=== PATIENT | female | born 1960 | race Caucasian/White ===

== ENCOUNTER 2017-03-15 15:23 | Emergency (ER) | payer BC ==
[2017-03-15 15:45] VITALS: BP 132/74
--- NOTE | 2017-03-15 16:00 | UC ---
Back Pain HPI - HPI Summary HPI Summary: Slipped and feel in the hallway at [employer] on Saturday has a bruise on her buttock, chiropractor ordered back x-rays and suggested she get a muscle relaxer - History of Current Complaint Chief Complaint: UCBackPain Stated Complaint: BACK PAIN Time Seen by Provider: 03/15/17 15:55 Hx Obtained From: Patient Hx Last Menstrual Period: menopausal ?: No Onset/Duration: Sudden Onset, Lasting Days - 4days ago, Still Present Timing: Constant Severity Initially: Moderate Severity Currently: Moderate Pain Intensity: 7 Pain Scale Used: 0-10 Numeric Back Pain: Is Discrete @ - lumbar/sacral spine Character: Aching, Spasmodic Aggravating: Movement, Lifting Alleviating: Rest, OTC Meds - Naproxen Associated Signs And Symptoms: Positive: Bruising - Allergies/Home Medications Allergies/Adverse Reactions: Allergies Allergy/AdvReac Type Severity Reaction Status Date / Time No Known Allergies Allergy Verified 02/10/13 08:34 PMH/Surg Hx/FS Hx/Imm Hx Previously Healthy: Yes Endocrine History Of: Denies: Diabetes, Thyroid Disease Cardiovascular History Of: Denies: Cardiac Disorders, Hypertension Respiratory History Of: Denies: COPD, Asthma GI/ History Of: Denies: Ulcer Cancer History Of: Denies: Breast Cancer - Surgical History Surgical History: None Surgery Procedure, Year, and Place: HYSTERECTOMY,BIOPSY - Family History Known Family History: Positive: None Family History: no reported cardiovascular issues in family lineage - Social History Occupation: Retired - and volunteers at the school Lives: With Family Alcohol Use: None Substance Use Type: None Smoking Status (MU): Never Smoked Tobacco Review of Systems Constitutional: Negative Skin: Negative Eyes: Negative ENT: Negative Respiratory: Negative Cardiovascular: Negative Gastrointestinal: Negative Genitourinary: Negative Motor: Negative Neurovascular: Negative Musculoskeletal: Arthralgia - lumbar sacral pain Neurological: Negative Psychological: Negative All Other Systems Reviewed And Are Negative: Yes Physical Exam Triage Information Reviewed: Yes Appearance: Well-Appearing, Well-Nourished, Pain Distress Vital Signs: Initial Vital Signs Pulse 63 03/15/17 15:38 Resp 16 03/15/17 15:38 BP 132/74 03/15/17 15:38 Pulse Ox 97 03/15/17 15:38 Vital Signs Reviewed: Yes Eye Exam: Normal Eyes: Positive: Conjunctiva Clear ENT Exam: Normal ENT: Positive: Normal ENT inspection, Hearing grossly normal, Pharynx normal, TMs normal. Negative: Nasal congestion, Nasal drainage, Trismus, Muffled/ hoarse voice Dental Exam: Normal Neck exam: Normal Neck: Positive: Supple, Nontender, No Lymphadenopathy Respiratory Exam: Normal Respiratory: Positive: Chest non-tender, Lungs clear, Normal breath sounds, No respiratory distress, No accessory muscle use Cardiovascular Exam: Normal Cardiovascular: Positive: RRR, No Murmur, Pulses Normal, Brisk Capillary Refill Abdominal Exam: Normal Abdomen Description: Positive: Nontender, No Organomegaly, Soft Bowel Sounds: Positive: Present Musculoskeletal Exam: Normal Musculoskeletal: Positive: Strength Intact, No Edema, ROM Limited @ - limited flex, extend and lateral movements Neurological Exam: Normal Neurological: Positive: Alert, Muscle Tone Normal Psychological Exam: Normal Skin Exam: Normal Diagnostics - Radiology No standard instances Xray Interpretation: Positive (See Comments) - artherictic changes Radiology Interpretation Completed By: Radiologist Back Pain Course/Dx - Course Course Of Treatment: Naproxen, flexeril, complimentary treatment as pt sees necessary follow with pcp - Differential Dx/Diagnosis Differential Diagnosis/HQI/PQRI: Arthritis, Strain, Sprain Provider Diagnoses: Lumbar sacral muscle strain, Discharge - Discharge Plan Condition: Stable Disposition: HOME Prescriptions: Cyclobenzaprine TAB* [Flexeril 10 MG TAB*] 10 mg PO TID PRN #24 tab PRN Reason: muscle spasm, pain Naproxen Sodium [Naproxen Sodium 500 MG TAB] 500 mg PO BID #40 tab Patient Education Materials: Low Back Strain (ED), Acute Low Back Pain (ED), Core Strengthening Exercises (GEN), Lower Back Exercises (ED) Referrals: Nitin Mckeon MD [Primary Care Provider] - 5 Days
== END 2017-03-15 16:21 | disposition home or self-care (01) ==
LOC: UCEAST 15:23
DX: S39.012A Strain of muscle, fascia and tendon of lower back, initial encounter (principal); W01.0XXA Fall on same level from slipping, tripping and stumbling without subsequent striking against object, initial encounter
CPT/HCPCS: 99212; G0463

== ENCOUNTER 2017-10-27 17:57 | Emergency (ER) | payer BC ==
[2017-10-27 18:20] VITALS: BP 131/66
[2017-10-27] MEDS ORDERED: Naproxen TAB* 250 MG PO ONE (18:27)
[2017-10-27] MEDS ORDERED: HYDROcodone/ACETAMIN 5-325 MG* 1 TAB PO ONE ×2 (18:27→19:43)
--- NOTE | 2017-10-27 18:32 | UC ---
Lower Extremity/Ankle HPI - HPI Summary HPI Summary: While stepping down from ladder at home [place] L ankle twisted underneath her and twisted around. Now has swelling, bruising, and pain, unable to bear weight. Had prior tibial plateau fx in L knee. Denies other injuries to wrists or head/neck. - History of Current Complaint Chief Complaint: UCLowerExtremity Stated Complaint: L ANKLE PAIN Time Seen by Provider: 10/27/17 18:19 Hx Obtained From: Patient Hx Last Menstrual Period: post ?: No Onset/Duration: Sudden Onset Severity Initially: Severe Severity Currently: Moderate Aggravating Factor(s): Other - movement Alleviating Factor(s): Rest, Elevation Able to Bear Weight: No - Allergies/Home Medications Allergies/Adverse Reactions: Allergies Allergy/AdvReac Type Severity Reaction Status Date / Time No Known Allergies Allergy Verified 10/27/17 18:20 PMH/Surg Hx/FS Hx/Imm Hx Previously Healthy: Yes - Surgical History Surgical History: None Surgery Procedure, Year, and Place: HYSTERECTOMY,BIOPSY - Family History Known Family History: Positive: None Family History: no reported cardiovascular issues in family lineage - Social History Lives: Alone Alcohol Use: None Substance Use Type: None Smoking Status (MU): Never Smoked Tobacco Review of Systems Constitutional: Negative Skin: Negative Eyes: Negative ENT: Negative Respiratory: Negative Cardiovascular: Negative Gastrointestinal: Negative Genitourinary: Negative Motor: Negative Neurovascular: Negative Musculoskeletal: Arthralgia, Decreased ROM, Edema Neurological: Negative Psychological: Negative Is Patient Immunocompromised?: No All Other Systems Reviewed And Are Negative: Yes Physical Exam Triage Information Reviewed: Yes Appearance: Well-Nourished, Pain Distress - mod Vital Signs: Initial Vital Signs Temp 97.8 F 10/27/17 18:16 Pulse 71 10/27/17 18:16 Resp 17 10/27/17 18:16 BP 131/66 10/27/17 18:16 Pulse Ox 96 10/27/17 18:16 Vital Signs Reviewed: Yes Eye Exam: Normal Eyes: Positive: Conjunctiva Clear ENT Exam: Normal ENT: Positive: Normal ENT inspection, Hearing grossly normal, Pharynx normal, TMs normal Dental Exam: Normal Neck exam: Normal Neck: Positive: Supple, Nontender, No Lymphadenopathy Respiratory Exam: Normal Respiratory: Positive: Chest non-tender, Lungs clear, Normal breath sounds, No respiratory distress, No accessory muscle use Cardiovascular Exam: Normal Cardiovascular: Positive: RRR, No Murmur Musculoskeletal Exam: Other - L medial ankle tenderness, diffuse swelling and ecchymosis, no tenderness at base of L 5th metatarsal. Musculoskeletal: Positive: ROM Limited @ - L ankle Neurological Exam: Normal Neurological: Positive: Alert Psychological Exam: Normal Skin Exam: Normal Procedures - Splinting Location: L lower leg Hand-Made Type: orthoglass Splint: posterior walking Pre-Proc Neuro Vasc Exam: normal Post-Proc Neuro Vasc Exam: normal Lower Extremity Course/Dx - Differential Dx/Diagnosis Provider Diagnoses: L ankle bimalleolar fracture closed, moderate displacement Discharge - Discharge Plan Condition: Stable Disposition: HOME Prescriptions: HYDROcodone/ACETAMIN 5-325 MG* [Noble 5-325 TAB*] 1 - 2 tab PO Q6H PRN #12 tab MDD 6 PRN Reason: Pain Patient Education Materials: Ankle Fracture (ED) Referrals: Adolfo Roque MD [Medical Doctor] - 3 Days Additional Instructions: Keep the injured leg elevated as much as possible; you can continue naproxen twice daily until you see the orthopedist, and use the hydrocodone as needed. If the orthopedist office cannot see you within 3 days, please call us for further assistance.
--- NOTE | 2017-10-27 18:59 | RAD ---
INDICATION: Left ankle injury. TECHNIQUE: 3 views of the left ankle were obtained. FINDINGS: There is diffuse soft tissue swelling. There is a transverse distracted intra-articular fracture of the medial malleolus. There is an oblique intra-articular fracture of the lateral malleolus. The distal fragment is displaced one cortical diameter posterior relative to the proximal fragment. There is diffuse widening of the ankle mortise. IMPRESSION: BIMALLEOLAR FRACTURE WITH DIFFUSE WIDENING OF THE ANKLE MORTISE.
== END 2017-10-27 19:50 | disposition home or self-care (01) ==
LOC: UCEAST 17:57
DX: S82.842A Displaced bimalleolar fracture of left lower leg, initial encounter for closed fracture (principal); X50.1XXA Overexertion from prolonged static or awkward postures, initial encounter; Y93.89 Activity, other specified; Y92.9 Unspecified place or not applicable
CPT/HCPCS: 99213; A9270-GY; G0463

== ENCOUNTER → 2017-11-06 13:49 | Day surgery (SDC) | payer BC ==
[~2017-11-06 13:49] MED LIST: Buffered Lidocaine 0.9% SYRIN* 5 ML/SYR SYRINGE INTRADERM ONE; Buffered Lidocaine 0.9% SYRIN* 5 ML/SYR SYRINGE ONE; Bupivacaine 0.25% SDV* 30 ML ONE; Dexamethasone IV* 4 MG/ML 1 ML (4 MG) ONE; DiMENhydriNATE IV* 50 MG/ML VIAL IV PUSH PRN; HYDROcodone/ACETAMIN 5-325 MG* 1 TAB ONE; HYDROcodone/ACETAMIN 5-325 MG* 1 TAB PO PRN; HYDROmorphone INJ* 1 MG/ML CARPUJECT SYRINGE IV PRN; Ketorolac INJ* 30 MG/ML 1 ML VIAL ONE; Midazolam* 1 MG/ML 2 ML VIAL (2 MG) ONE; Naloxone* 0.4 MG/ML 1 ML VIAL IV PRN; Ondansetron INJ* 2 MG/ML VIAL IV PRN; Ondansetron INJ* 2 MG/ML VIAL ONE; Propofol* 10 MG/ML 20 ML BTL IV PUSH ONE; ceFAZolin 2 GM PREMIX (*) 2 GM/50 ML BAG IVPB ONE; fentaNYL* 50 MCG/ML 2 ML VIAL (100 MCG VIAL) IV PRN; fentaNYL* 50 MCG/ML 2 ML VIAL (100 MCG VIAL) ONE; oxyCODONE/Acetamin 5/325 MG* TAB PO PRN
--- NOTE | 2017-11-06 19:19 | RAD ---
CPT II Codes: 6045F INDICATION: Left ankle fracture TECHNIQUE: Intraoperative fluoroscopy was provided during left ankle ORIF. FINDINGS: 5 spot films depict anatomic alignment of plate and screw fixator spanning the right distal fibula and tibial malleolus. Fluoroscopy time: 22 seconds IMPRESSION: As above.
[2017-11-06 19:44] VITALS: BP 144/77
--- NOTE | 2017-11-07 23:56 | OP ---
CC: PCP, Nitin Mckeon MD * DATE OF OPERATION: 11/06/17 - [facility] DATE OF : 56 SURGEON: Adolfo Roque MD ASSISTANTS: JEEVAN Manning and Jag Powell. ANESTHESIOLOGIST: Dr. Cruz. ANESTHESIA: General. PRE-OP DIAGNOSIS: Left ankle bimalleolar fracture. POST-OP DIAGNOSIS: Left ankle bimalleolar fracture. OPERATIVE PROCEDURE: 1. Left ankle open reduction internal fixation of lateral and medial malleolus. 2. Stressing of the syndesmosis. TOURNIQUET TIME: 73 minutes at 250 mmHg. COMPLICATIONS: None. ESTIMATED BLOOD LOSS: Minimal. IMPLANTS USED: One third tubular plate along the lateral malleolus and two 4.0 mm cannulated screws on the medial malleolus. INDICATIONS: Ms. Keyanna Emerson is a 57-year-old female who fell down attic stairs on 10/27/17. She was diagnosed with bimalleolar ankle fracture, was splinted. She came and presented to the office. We checked her skin. She had a lot of swelling, so we planned for surgery approximately 10 days from her injury. Risks and benefits of surgery were discussed at length and included, but not limited to bleeding, infection, damage to nerves, vessels, surrounding structures, wound nonhealing, persistent pain, need for further surgery, scarring, stiffness, incomplete relief of symptoms, and risk of anesthesia. DESCRIPTION OF PROCEDURE: The patient was greeted in the preoperative area by the attending surgeon. Correct extremity was marked and consent was confirmed. The patient was brought back to the operating suite, where she was placed in supine position on the operating table. She then underwent general anesthesia with LMA intubation after which an unsterile tourniquet was placed high on the proximal thigh. The bone foam was placed. The splint was removed. The skin was intact with wrinkles, which was also checked in the preoperative area. The left leg was prepped and draped in the usual sterile fashion beginning with chlorhexidine soap scrub and alcohol wipe and a final prep with ChloraPrep. After appropriate surgical pause indicating side, site, and procedure, administration of antibiotics, the limb was exsanguinated using the Esmarch. The tourniquet inflated to 250 mmHg. A #15 blade was used to make an incision along the lateral malleolus. The soft tissues were carefully dissected. The fascia had already been torn. There was evidence of hematoma and scarring. The fracture sites were identified. The fracture was open and cleaned with a rongeur and curette to remove any blood clot. The #15 blade was then used to remove the edges of the periosteum to make sure there is no evidence of impingement. Once the fracture fragments were mobilized, this was then reduced using reduction forceps. Once an appropriate reduction identified and confirmed with the C-arm, an anterior, posterior screw was placed in a lag-type fashion, perpendicular to the fracture fragment, which resulted in anatomic confucianist of the length of fibula as well as anatomic reduction. A 7-hole one-third tubular plate was then placed at the distal fibula. It was bent, so that was allowed to be a C-shaped. This was secured first proximally with a nonlocking screw and then distally with cancellous screws with on left left free in case there needed to be syndesmosis fixation. Once the remainder of screws were placed with excellent purchase, the attention was directed to the medial malleolus. Incision centered over the medial malleolus. A hockey-stick incision was then made using #15 blade. Soft tissues were carefully dissected to expose the fascia, which was disrupted. This was carefully elevated and prepared for later closure. The fracture fragment was identified and was found to be a transverse type fracture. The end of the malleolus was identified and the fracture was book-ended using a curette and rongeur and irrigation. The fracture fragment was cleaned out. The fracture was then provisionally reduced , confirmed over the C-arm. Two 0.125 K- wires were placed in a parallel fashion along the very inferior point of the medial malleolus across the fracture site. The x-ray was confirmed on the AP and lateral views to make sure that this is parallel and appropriate reduction was obtained. As the joint line was restored, it was decided to penetrate the cortex with the appropriate cannulated drill bit and then two 4.0 cannulated screws were placed with excellent purchase in the medial malleolus. Images were obtained. The stress views were taken of the syndesmosis to make sure that there is no evidence of syndesmosis widening, which there was not. Final images were obtained. The wounds were copiously irrigated with sterile saline. The fascial layer was closed with 2- 0 Vicryl over the plate laterally. The subcutaneous tissues were closed with 2-0 Vicryl and then swapnil on the medial wound. The fascia was closed with 2-0 Vicryl. Subcutaneous layer was also closed with 2-0 Vicryl and the skin with 3-0 nylon in interrupted fashion. The wounds were injected with 0.25% Marcaine plain. Sterile dressings were applied. Tourniquet was released for a total time of 73 minutes. The well-padded posterior splint was then placed with a U-strap. The toes were pink and well perfused. She was awoken from anesthesia and transferred to the PACU in stable condition. POSTOPERATIVE PLAN: She will be nonweightbearing for about 4 weeks and then start partial weightbearing. She will be discharged on pain medications. DVT prophylaxis considered. She will be started on aspirin 325 mg p.o. b.i.d. I will see the patient back in 10 to 14 days and repeat x-rays out of the splint. [id number]/[facility] #: [id number] [place]
== END | disposition home or self-care (01) ==
LOC: OR 13:49
PROVIDERS: ATTEND Orthopaedic Surgery
DX: S82.842A Displaced bimalleolar fracture of left lower leg, initial encounter for closed fracture (principal); Z79.82 Long term (current) use of aspirin; Z90.710 Acquired absence of both cervix and uterus; X58.XXXA Exposure to other specified factors, initial encounter
CPT/HCPCS: 76001; C1713; C1776; J0690; J1100; J1885; J2250; J2405; J2704; J3010